=== PATIENT | male | born 1945 | race Caucasian/White ===

== ENCOUNTER → 2016-12-18 | Outpatient (CLI) | payer MEDICARE, OTHER ==
[~2016-12-18] MED LIST: AZOR5TAB4 PO; FISH100049 PO; ISOVUE-370 76% 100ML VIAL (Q9967) As Ordered ONE; SYNT150T PO; VITA20008 PO; asa PO; lipitor PO; metformin PO; multivitamin PO
--- NOTE | 2016-12-18 10:59 | REP ---
CT abdomen and pelvis multiphase scanning, a CT urogram protocol: Scanning is initially performed without IV contrast. After IV contrast, immediate and delayed scanning are performed. 3-D reconstruction of the urinary collecting system is performed. On 06/13/2015 there was focal panniculitis in the abdominal left lower quadrant. A followup study 10/10/2015 this panniculitis has resolved but there was a new focal zone of panniculitis in the right lower quadrant. On the study today there is a focal panniculitis in the right lower quadrant has resolved. The panniculitis in the left lower quadrant remains resolved. No new focal zones of panniculitis are identified. There are approximately four nonobstructive left renal calculi in the lower pole, the largest measuring 9 mm. There is no left hydronephrosis or hydroureter. There are no right renal or ureteral calculi. There is no right hydronephrosis. However, there are two bladder calculi posterolaterally on the right. These were not present on the most recent prior CT of 09/30/2015. These are nonspecific but could have been recently passed right ureteral calculi. Correlation with symptomatology is recommended. There is a 4.1 cm simple cyst at the lower pole of the right kidney. This measured 3.7 cm previously. There is a 3.2 cm simple cyst at the lower pole of the left kidney. This measured 2.7 cm previously. There are no renal masses. No perinephric stranding. The visualized lung oneal are unremarkable. The hepatic parenchyma is homogeneous and unremarkable. There are surgical clips in the gallbladder fossa. The pancreas and spleen are normal size and unremarkable. The adrenals and abdominal aorta are unremarkable. There is no bowel distension. The mesentery is unremarkable. Pelvis: The appendix has a normal appearance. The prostate is enlarged and effaces the bladder base. This is unchanged. There is no adenopathy or ascites. There is diverticulosis of the sigmoid colon without diverticulitis. This is unchanged. Impression: On the previous studies there were findings compatible with panniculitis. This has completely resolved on the current study. There is no hydronephrosis or hydroureter on the right on the left. There are several nonobstructive left renal calculi. There are no right renal calculi. There are two bladder calculi posterolaterally on the right, nonspecific but could have been recently passed into the bladder from a ureter. Correlate with the patient's symptomatology. There is a simple cyst in each kidney at the lower poles. The prostate is enlarged and effaces the bladder base. This is unchanged. There is no ascites or adenopathy. There is diverticulosis without diverticulitis. Signed by Vikas Laguerre MD 12/18/2016 10:50 A
== END ==
LOC: M RAD 08:44
PROVIDERS: ATTEND Internal Medicine
DX: N20.0 Calculus of kidney (principal)
CPT/HCPCS: 74178; Q9967

== ENCOUNTER → 2017-10-28 | Outpatient (REF) | payer MEDICARE, OTHER ==
[2017-10-28 10:26] LABS: CK-MB VALUE MASS 4.2 NG/ML (<3.6); CPK CREATINE PHOSPHOKINASE 268 U/L (39-308); MB/CK RELATIVE INDEX 1.56 (< OR =4); TROPONIN I < 0.02 NG/ML (< 0.10)
== END ==
LOC: M LAB REF 10:08
DX: R07.9 Chest pain, unspecified (principal)
CPT/HCPCS: 82550

== ENCOUNTER 2018-04-27 10:38 | Emergency (ER) | payer MEDICARE, OTHER ==
[2018-04-27] MEDS: NS 1,000 ML IV (11:10)
[2018-04-27] MEDS: KETOROLAC 30 MG/ML VIAL (J1885) IV (11:10)
[2018-04-27] MEDS: MORPHINE 4 MG/ML 1ML VIAL/SYRINGE (J2270) IV (11:11)
[2018-04-27 11:21] LABS: BASO % 0.2 % (0.0-1.0); EOS % 0.1 % (0.0-3.0); HEMATOCRIT 45.7 % (42.0-52.0); HEMOGLOBIN 15.9 g/dl (13.5-17.5); IMMATURE GRANULOCYTE % 0.5 % (0-3.0); MEAN CORPUSCULAR HEMOGLOBIN 30.8 pg (27.0-33.0); MEAN CORPUSCULAR HGB CONC 34.8 g/dl (32.0-36.5); MEAN CORPUSCULAR VOLUME 88.4 fl (80.0-96.0); MONO % 8.7 % (0.0-5.0); NEUTROPHILS # 9.1 10^3/uL (1.8-7.7); NEUTROPHILS % 81.5 % (36.0-66.0); PLATELET COUNT, AUTOMATED 160 10^3/uL (150-450); RED BLOOD COUNT 5.17 10^6/uL (4.30-6.10); RED CELL DISTRIBUTION WIDTH 12.5 % (11.5-14.5); WHITE BLOOD COUNT 11.1 10^3/uL (4.0-10.0)
[2018-04-27 11:51] LABS: ANION GAP 10 MEQ/L (8-16); BLOOD UREA NITROGEN 29 MG/DL (7-18); C REACTIVE PROTEIN QUANTITATIV 4.03 MG/DL (0.00-0.30); CALCIUM LEVEL 9.5 MG/DL (8.8-10.2); CARBON DIOXIDE LEVEL 26 MEQ/L (21-32); CHLORIDE LEVEL 100 MEQ/L (98-107); CREATININE FOR GFR 2.18 MG/DL (0.70-1.30); GLUCOSE, FASTING 189 MG/DL (70-100); LIPASE 102 U/L (73-393); POTASSIUM SERUM 4.2 MEQ/L (3.5-5.1); SODIUM LEVEL 136 MEQ/L (136-145)
[2018-04-27 12:12] LABS: APPEARANCE, URINE CLEAR (CLEAR); BACTERIA, URINE AUTO NEGATIVE (NEGATIVE); BILIRUBIN, URINE AUTO NEGATIVE (NEGATIVE); BLOOD, URINE BLOOD 1+ (NEGATIVE); COLOR, URINE YELLOW (YELLOW); GLUCOSE, URINE (UA) AUTO 2+ mg/dL (NEGATIVE); KETONE, URINE AUTO TRACE mg/dL (NEGATIVE); LEUKOCYTE ESTERASE, URINE AUTO NEGATIVE (NEGATIVE); MUCUS, URINE SMALL (NEGATIVE); NITRITE, URINE AUTO NEGATIVE (NEGATIVE); PROTEIN, URINE AUTO NEGATIVE (NEGATIVE); RBC, URINE AUTO 2 /HPF (0-3); SPECIFIC GRAVITY URINE AUTO 1.015 (1.002-1.035); SQUAMOUS EPITHELIAL CELL UR AU 0 /HPF (0-6); UROBILINOGEN, URINE AUTO 0.2 mg/dL (0.0-2.0); WBC, URINE AUTO 2 /HPF (0-3)
[2018-04-27 13:15] LABS: ANION GAP 8 MEQ/L (8-16); BLOOD UREA NITROGEN 29 MG/DL (7-18); CALCIUM LEVEL 8.3 MG/DL (8.8-10.2); CARBON DIOXIDE LEVEL 25 MEQ/L (21-32); CHLORIDE LEVEL 105 MEQ/L (98-107); CREATININE FOR GFR 1.97 MG/DL (0.70-1.30); GLUCOSE, FASTING 177 MG/DL (70-100); POTASSIUM SERUM 4.7 MEQ/L (3.5-5.1); SODIUM LEVEL 138 MEQ/L (136-145)
== END 2018-04-27 13:46 | disposition home or self-care (01) ==
LOC: M ED 10:38
DX: N20.1 Calculus of ureter (principal); N13.30 Unspecified hydronephrosis; N28.1 Cyst of kidney, acquired; I25.2 Old myocardial infarction; E11.9 Type 2 diabetes mellitus without complications; Z98.890 Other specified postprocedural states; Z87.442 Personal history of urinary calculi; Z79.890 Hormone replacement therapy; Z79.84 Long term (current) use of oral hypoglycemic drugs; Z79.899 Other long term (current) drug therapy
CPT/HCPCS: J2270

== ENCOUNTER → 2018-05-05 | Outpatient (REF) | payer MEDICARE, OTHER ==
[2018-05-05 14:31] LABS: APPEARANCE, URINE TURBID (CLEAR); BACTERIA, URINE AUTO NEGATIVE (NEGATIVE); BILIRUBIN, URINE AUTO NEGATIVE (NEGATIVE); BLOOD, URINE BLOOD NEGATIVE (NEGATIVE); COLOR, URINE YELLOW (YELLOW); GLUCOSE, URINE (UA) AUTO 1+ mg/dL (NEGATIVE); KETONE, URINE AUTO NEGATIVE (NEGATIVE); LEUKOCYTE ESTERASE, URINE AUTO NEGATIVE (NEGATIVE); MUCUS, URINE SMALL (NEGATIVE); NITRITE, URINE AUTO NEGATIVE (NEGATIVE); PROTEIN, URINE AUTO NEGATIVE (NEGATIVE); RBC, URINE AUTO 2 /HPF (0-3); SQUAMOUS EPITHELIAL CELL UR AU 0 /HPF (0-6); UROBILINOGEN, URINE AUTO 0.2 mg/dL (0.0-2.0); WBC, URINE AUTO 2 /HPF (0-3)
== END ==
LOC: M SMT 13:40
DX: N20.0 Calculus of kidney (principal)
CPT/HCPCS: 81001

== ENCOUNTER → 2018-05-05 | Outpatient (CLI) | payer MEDICARE, OTHER | LOC: M SMT 08:21 | DX: N20.0 Calculus of kidney (principal) | CPT/HCPCS: 74018; 81001 ==

== ENCOUNTER → 2018-05-18 | Outpatient (CLI) | payer MEDICARE, OTHER | LOC: M RAD 07:52 | DX: N28.1 Cyst of kidney, acquired (principal); N40.0 Benign prostatic hyperplasia without lower urinary tract symptoms | CPT/HCPCS: 76775 ==

== ENCOUNTER → 2018-06-08 | Outpatient (CLI) | payer MEDICARE, OTHER ==
[2018-06-08 08:56] LABS: HEMOGLOBIN 15.6 g/dl (13.5-17.5); MEAN CORPUSCULAR HEMOGLOBIN 30.6 pg (27.0-33.0); MEAN CORPUSCULAR HGB CONC 33.9 g/dl (32.0-36.5); MEAN CORPUSCULAR VOLUME 90.2 fl (80.0-96.0); PLATELET COUNT, AUTOMATED 160 10^3/uL (150-450); RED CELL DISTRIBUTION WIDTH 12.4 % (11.5-14.5); WHITE BLOOD COUNT 5.3 10^3/uL (4.0-10.0)
[2018-06-08 09:23] LABS: ANION GAP 7 MEQ/L (8-16); BLOOD UREA NITROGEN 18 MG/DL (7-18); CALCIUM LEVEL 9.2 MG/DL (8.8-10.2); CARBON DIOXIDE LEVEL 27 MEQ/L (21-32); CHLORIDE LEVEL 105 MEQ/L (98-107); CREATININE FOR GFR 1.14 MG/DL (0.70-1.30); GLOMERULAR FILTRATION RATE > 60.0 (>42); GLUCOSE, FASTING 187 MG/DL (70-100); POTASSIUM SERUM 4.3 MEQ/L (3.5-5.1); SODIUM LEVEL 139 MEQ/L (136-145)
[2018-06-08 09:33] LABS: INR 0.98; PROTHROMBIN TIME 13.1 SECONDS (12.1-14.4)
[2018-06-08 09:34] LABS: PARTIAL THROMBOPLASTIN TIME 26.8 SECONDS (25.4-37.6)
== END ==
LOC: M LAB 08:21
DX: Z01.818 Encounter for other preprocedural examination (principal); N20.0 Calculus of kidney
CPT/HCPCS: 71046

== ENCOUNTER 2018-06-16 09:02 | Day surgery (SDC) | payer MEDICARE, OTHER ==
[~2018-06-16 09:02] MED LIST changes: -AZOR5TAB4 PO; -FISH100049 PO; -ISOVUE-370 76% 100ML VIAL (Q9967) As Ordered ONE; +LIDOCAINE 1% MDV 20ML VIAL SQ; -SYNT150T PO; -VITA20008 PO; -asa PO; -lipitor PO; -metformin PO; -multivitamin PO
[2018-06-16] MEDS: LR 1,000 ML IV (10:00)
[2018-06-16 10:22] LABS: BEDSIDE GLUCOSE 173 MG/DL (83-110)
[2018-06-16] MEDS ORDERED: PROPOFOL 200 MG/20 ML VIAL As Ordered (11:25)
[2018-06-16] MEDS ORDERED: MIDAZOLAM INJ 2 MG/2 ML VIAL (J2250) As Ordered (11:25)
[2018-06-16] MEDS ORDERED: LIDOCAINE 2% INJ 100 MG/5 ML SDV (FOR ANES.) As Ordered (11:25)
[2018-06-16] MEDS ORDERED: fentaNYL 100 MCG/2 ML INJECTION (J3010) As Ordered (11:32)
[2018-06-16] MEDS ORDERED: ONDANSETRON 4MG/2ML VIAL (J2405) As Ordered (12:21)
== END 2018-06-16 14:55 | disposition home or self-care (01) ==
LOC: M SDC 09:02
DX: N20.0 Calculus of kidney (principal); I25.2 Old myocardial infarction; I10 Essential (primary) hypertension; E11.9 Type 2 diabetes mellitus without complications; E03.9 Hypothyroidism, unspecified; E78.00 Pure hypercholesterolemia, unspecified; N40.0 Benign prostatic hyperplasia without lower urinary tract symptoms; N13.30 Unspecified hydronephrosis; E29.1 Testicular hypofunction; Z79.899 Other long term (current) drug therapy; Z79.82 Long term (current) use of aspirin; Z79.84 Long term (current) use of oral hypoglycemic drugs; Z86.19 Personal history of other infectious and parasitic diseases
CPT/HCPCS: 50590

== ENCOUNTER → 2018-07-14 | Outpatient (CLI) | payer MEDICARE, OTHER ==
[~2018-07-14] MED LIST changes: +AMLO-310 PO; +ASPI1TAB PO; +AZOR5TAB4 PO; +FISH100049 PO; +FLOM0.4C39 PO; -LIDOCAINE 1% MDV 20ML VIAL SQ; +LIPI20TA PO; +METF750T PO; +NORCOTAB PO; +SYNT125T PO; +SYNT150T PO; +VITA20008 PO; +ZOFR4TAB14 PO; +asa PO; +lipitor PO; +metformin PO; +multivitamin PO
[2018-07-14 10:54] LABS: IONIZED CALCIUM 4.7 MG/DL (4.5-5.3)
[2018-07-14 11:24] LABS: BLOOD UREA NITROGEN 19 MG/DL (7-18); CALCIUM LEVEL 8.7 MG/DL (8.8-10.2); CARBON DIOXIDE LEVEL 27 MEQ/L (21-32); CHLORIDE LEVEL 105 MEQ/L (98-107); CREATININE FOR GFR 1.04 MG/DL (0.70-1.30); GLOMERULAR FILTRATION RATE > 60.0 (>42); GLUCOSE, FASTING 162 MG/DL (70-100); MAGNESIUM LEVEL 1.8 MG/DL (1.8-2.4); PHOSPHORUS LEVEL 2.3 MG/DL (2.5-4.9); POTASSIUM SERUM 4.6 MEQ/L (3.5-5.1); SODIUM LEVEL 139 MEQ/L (136-145); URIC ACID 3.9 MG/DL (3.5-7.2)
--- NOTE | 2018-07-14 11:30 | REP ---
KUB, ONE VIEW: HISTORY: Kidney stones. COMPARISON: 06/16/2018. Air is present in small and large intestine. There are no air fluid levels or dilated loops of intestine. There is no pneumoperitoneum. Calcifications are present overlying the kidneys consistent with nephrolithiasis. Surgical clips are present in the right upper quadrant. IMPRESSION: 1. Nonspecific bowel gas pattern. 2. Bilateral nephrolithiasis. Electronically Signed by Pablito Rodriguez MD 07/14/2018 11:36 A
[2018-07-14 11:35] LABS: PTH INTACT 72.9 PG/ML (18.5-88.0)
== END ==
LOC: M LAB 10:23
PROVIDERS: ATTEND Nurse Practitioner Family
DX: N20.0 Calculus of kidney (principal)

== ENCOUNTER 2018-08-01 12:21 | Emergency (ER) | payer MEDICARE, OTHER ==
[~2018-08-01] VITALS: Ht 172.7 cm; Wt 84.1 kg
[2018-08-01 12:47] LABS: BASO % 0.1 % (0.0-1.0); HEMATOCRIT 44.4 % (42.0-52.0); HEMOGLOBIN 15.4 g/dl (13.5-17.5); LYMPH # 0.5 10^3/uL (1.5-4.5); LYMPH % 4.2 % (24.0-44.0); MEAN CORPUSCULAR HEMOGLOBIN 30.8 pg (27.0-33.0); MEAN CORPUSCULAR HGB CONC 34.7 g/dl (32.0-36.5); MEAN CORPUSCULAR VOLUME 88.8 fl (80.0-96.0); MONO # 0.3 10^3/uL (0.0-0.8); MONO % 2.4 % (0.0-5.0); NEUTROPHILS # 10.3 10^3/uL (1.8-7.7); PLATELET COUNT, AUTOMATED 182 10^3/uL (150-450); WHITE BLOOD COUNT 11.1 10^3/uL (4.0-10.0)
[2018-08-01 13:05] VITALS: BP 150/77
[2018-08-01 13:17] LABS: ALBUMIN 4.3 GM/DL (3.2-5.2); BILIRUBIN,DIRECT 0.2 MG/DL (0.0-0.2); BILIRUBIN,TOTAL 0.8 MG/DL (0.2-1.0); CALCIUM LEVEL 9.4 MG/DL (8.8-10.2); CREATININE FOR GFR 1.37 MG/DL (0.70-1.30); GLOMERULAR FILTRATION RATE 54.7 (>42); POTASSIUM SERUM 4.5 MEQ/L (3.5-5.1); TOTAL PROTEIN 7.2 GM/DL (6.4-8.2)
--- NOTE | 2018-08-01 13:33 | REP ---
CT abdomen and pelvis without IV or oral contrast: History: Flank pain. Rule out stone. Comparison study: April 27, 2018. 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 The lung bases are clear on axial CT images. The liver and spleen are normal in size and homogeneous in texture. No adrenal lesion is seen. No pancreatic abnormalities observed. There is a lower pole cyst in the right kidney measuring 4.2 cm in greatest diameter. There is a cyst in the lower pole left kidney measuring 3.1 cm in diameter. There are intrarenal calculi bilaterally. There is moderate right-sided hydronephrosis due to the presence of a right mid ureteral calculus. This measures 5.3 mm in greatest diameter. It is seen at the level of the L4 vertebral body. No left ureteral calculus is observed. No left-sided hydronephrosis is seen. There is a 4 mm infrarenal calculus in the right mid kidney and a 3 mm calculus in the lower pole on the right. There are several adjacent 4-5 mm calculi in the lower pole of the left kidney. No retroperitoneal mass or adenopathy is observed. There is an area to the left of midline in the small bowel mesentery consistent with some mesenteric fibrosis. There is unchanged from most recent study of April 27, 2018. It is less prominent than a complex density seen at this location on the June 2015 prior exam. There is left colonic diverticulosis without CT evidence of diverticulitis. Prostate is enlarged. Normal appendix is seen. Impression: Moderate right-sided hydronephrosis due to a 5.3 mm right mid ureteral calculus. Bilateral infrarenal nephrolithiasis again noted. No left-sided hydronephrosis. Left colonic diverticulosis. Bilateral renal cysts. 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 Post cholecystectomy clips. Electronically Signed by Phi Plata MD 08/01/2018 01:56 P
[2018-08-01] MEDS ORDERED: ONDANSETRON 4MG/2ML VIAL (J2405) IV ONE (14:15)
[2018-08-01] MEDS ORDERED: MORPHINE 4 MG/ML 1ML VIAL/SYRINGE (J2270) IV ONE ×2 (14:15→15:30)
[2018-08-01] MEDS ORDERED: PERCOCET 5MG/325MG TAB PO ONE (15:30)
[2018-08-01] MEDS ORDERED: PERC5TAB12 PO (16:23)
[2018-08-01] MEDS ORDERED: ZOFR4TAB16 PO (16:23)
== END 2018-08-01 16:39 | disposition home or self-care (01) ==
LOC: M ED 12:21
DX: N20.1 Calculus of ureter (principal); E86.0 Dehydration; R11.2 Nausea with vomiting, unspecified; Z87.442 Personal history of urinary calculi; Z79.899 Other long term (current) drug therapy; Z79.82 Long term (current) use of aspirin; Z79.84 Long term (current) use of oral hypoglycemic drugs
CPT/HCPCS: 74176; 80048; 80076; 81001; 83690; 85025; 96374; 96375; 96376; 99284; J2270; J2405

== ENCOUNTER → 2018-09-05 | Outpatient (CLI) | payer MEDICARE, OTHER ==
[~2018-09-05] MED LIST changes: +PERC5TAB12 PO; +ZOFR4TAB16 PO
--- NOTE | 2018-09-05 10:12 | REP ---
KUB, ONE VIEW: HISTORY: Kidney stones. COMPARISON: 07/14/2018 Air is present in small and large intestine. There are no air fluid levels or dilated loops of intestine. There is no pneumoperitoneum. Calcifications are present overlying the kidneys consistent with nephrolithiasis. IMPRESSION: 1. Nonspecific bowel gas pattern. 2. Bilateral nephrolithiasis. Electronically Signed by Pablito Rodriguez MD 09/05/2018 10:17 A
[2018-09-05 13:34] LABS: AMORPHOUS SEDIMENT SMALL (NEGATIVE); APPEARANCE, URINE TURBID (CLEAR); BACTERIA, URINE AUTO NEGATIVE (NEGATIVE); BILIRUBIN, URINE AUTO NEGATIVE (NEGATIVE); BLOOD, URINE BLOOD NEGATIVE (NEGATIVE); CALCIUM OXALATE CRYSTALS SMALL; COLOR, URINE YELLOW (YELLOW); GLUCOSE, URINE (UA) AUTO 1+ mg/dL (NEGATIVE); KETONE, URINE AUTO NEGATIVE (NEGATIVE); LEUKOCYTE ESTERASE, URINE AUTO NEGATIVE (NEGATIVE); NITRITE, URINE AUTO NEGATIVE (NEGATIVE); PROTEIN, URINE AUTO NEGATIVE (NEGATIVE); RBC, URINE AUTO 0 /HPF (0-3); SPECIFIC GRAVITY URINE AUTO 1.021 (1.002-1.035); SQUAMOUS EPITHELIAL CELL UR AU 0 /HPF (0-6); UROBILINOGEN, URINE AUTO 0.2 mg/dL (0.0-2.0); WBC, URINE AUTO 0 /HPF (0-3)
== END ==
LOC: M SMT 08:39
PROVIDERS: ATTEND Nurse Practitioner Family
DX: N20.0 Calculus of kidney (principal)
CPT/HCPCS: 74018; 81001; 87086; G0463

== ENCOUNTER → 2019-03-06 | Outpatient (CLI) | payer MEDICARE, OTHER ==
[~2019-03-06] MED LIST changes: -ASPI1TAB PO; +ASPI81TA26 PO; +HYDR-3715 PO; -METF750T PO; +METF750T36 PO; -NORCOTAB PO
--- NOTE | 2019-03-06 17:28 | REP ---
KUB: Single view. History: Kidney stones. Comparison study: September 05, 2018. Findings: There are clips in right upper quadrant. Air and stool is seen in a nondilated colon. Splenic stripes are intact. There are calcific opacities overlying the lower pole of the left kidney and the upper pole of the right kidney. These are similar to the prior study of September 05, 2018 and consistent with intrarenal calculi. Some vascular calcification is observed. There are degenerative changes in the lumbar spine. Impression: Findings consistent with bilateral intrarenal nephrolithiasis. Electronically Signed by Phi Plata MD 03/06/2019 06:02 P
== END ==
LOC: M SMT 14:17
PROVIDERS: ATTEND Nurse Practitioner Family
DX: N20.0 Calculus of kidney (principal)

== ENCOUNTER → 2019-09-05 | Outpatient (CLI) | payer MEDICARE, OTHER ==
[~2019-09-05] MED LIST changes: -AMLO-310 PO; +AMLO-360 PO
--- NOTE | 2019-09-05 14:26 | REPPI ---
REASON: History of renal calculi. COMPARISON: 03/06/2019. There are multiple calcific densities superimposed over each nephric silhouette region and probably unchanged from the prior exam, however, the nephric silhouettes were for the most part obscured by bowel content on the prior exam. There are pelvic calcifications status quo. There are chronic changes seen involving the spine, hips, and sacroiliac joints status quo. IMPRESSION: Probably no significant change when compared to the prior exam. Electronically Signed by Stevan Guido DO 09/05/2019 02:46 P
== END ==
LOC: M PLAIMG 13:15
PROVIDERS: ATTEND Nurse Practitioner Family
DX: N20.0 Calculus of kidney (principal)

== ENCOUNTER → 2019-10-05 | Outpatient (REF) | payer MEDICARE, OTHER ==
[2019-10-05 17:13] LABS: APPEARANCE, URINE CLEAR (CLEAR); BACTERIA, URINE AUTO NEGATIVE (NEGATIVE); BILIRUBIN, URINE AUTO NEGATIVE (NEGATIVE); BLOOD, URINE BLOOD NEGATIVE (NEGATIVE); COLOR, URINE YELLOW (YELLOW); GLUCOSE, URINE (UA) AUTO 3+ mg/dL (NEGATIVE); KETONE, URINE AUTO NEGATIVE (NEGATIVE); LEUKOCYTE ESTERASE, URINE AUTO NEGATIVE (NEGATIVE); NITRITE, URINE AUTO NEGATIVE (NEGATIVE); PROTEIN, URINE AUTO NEGATIVE (NEGATIVE); RBC, URINE AUTO 0 /HPF (0-3); SQUAMOUS EPITHELIAL CELL UR AU 0 /HPF (0-6); UROBILINOGEN, URINE AUTO 0.2 mg/dL (0.0-2.0); WBC, URINE AUTO 0 /HPF (0-3)
[2019-10-05 17:16] LABS: BLOOD UREA NITROGEN 24 MG/DL (7-18); CALCIUM LEVEL 9.3 MG/DL (8.8-10.2); CARBON DIOXIDE LEVEL 28 MEQ/L (21-32); CHLORIDE LEVEL 103 MEQ/L (98-107); CREATININE FOR GFR 1.17 MG/DL (0.70-1.30); GLOMERULAR FILTRATION RATE > 60.0 (>42); GLUCOSE, FASTING 233 MG/DL (70-100); POTASSIUM SERUM 4.4 MEQ/L (3.5-5.1); SODIUM LEVEL 139 MEQ/L (136-145)
== END ==
LOC: M PLALAB 13:26
PROVIDERS: ATTEND Nurse Practitioner Family
DX: N20.0 Calculus of kidney (principal)

== ENCOUNTER → 2019-12-21 | Outpatient (REF) | payer MEDICARE, OTHER ==
[2019-12-23 18:07] LABS: Lyme Disease IgG/IgM Antibodie <0.91 ISR (0.00-0.90); Lyme Disease IgM Ab Quantitati <0.80 index (0.00-0.79)
== END ==
LOC: M LAB REF 16:25
PROVIDERS: ATTEND Internal Medicine
DX: M25.50 Pain in unspecified joint (principal)

== ENCOUNTER → 2020-12-06 | Outpatient (CLI) | payer MEDICARE, OTHER ==
[~2020-12-06] MED LIST changes: +FISH1000 PO; +JARD1TAB PO
== END ==
LOC: M LABSMTC 11:47
PROVIDERS: ATTEND Anesthesiology
DX: Z20.828 Contact with and (suspected) exposure to other viral communicable diseases (principal); Z11.59 Encounter for screening for other viral diseases

== ENCOUNTER → 2021-06-02 | Outpatient (REF) | LOC: M LABSMTC 09:44 | PROVIDERS: ATTEND Pediatrics | DX: Z11.52 Encounter for screening for COVID-19 (principal) ==

== ENCOUNTER → 2022-07-07 | Outpatient (CLI) | payer MEDICARE, OTHER ==
[~2022-07-07] MED LIST changes: -AZOR5TAB4 PO; +[UNRECOGNIZED DRUG - CODE] PO
== END ==
LOC: M PLAIMG 09:39
PROVIDERS: ATTEND Physician Assistant
DX: N20.0 Calculus of kidney (principal)

== ENCOUNTER → 2022-07-28 | Outpatient (CLI) | payer MEDICARE, OTHER ==
[~2022-07-28] MED LIST changes: +LEVO112T2 PO; +OMEG10002 PO
[2022-07-28 10:04] LABS: APPEARANCE, URINE MANUAL CLEAR (CLEAR); BILIRUBIN, URINE MANUAL NEGATIVE (NEGATIVE); BLOOD URINE MANUAL NEGATIVE (NEGATIVE); COLOR, URINE MANUAL YELLOW (YELLOW); GLUCOSE, URINE (UA) MANUAL 4+(1000 MG/DL) mg/dL (NEGATIVE); KETONE, URINE MANUAL NEGATIVE (NEGATIVE); LEUKOCYTE ESTERASE, URINE MAN NEGATIVE (NEGATIVE); NITRITE, URINE MANUAL NEGATIVE (NEGATIVE); PROTEIN, URINE MANUAL NEGATIVE (NEGATIVE); UROBILINOGEN, URINE MANUAL NORMAL (NORMAL)
[2022-07-28 10:09] LABS: BASO % 0.6 % (0.0-1.0); EOS # 0.2 10^3/uL (0.0-0.5); EOS % 3.9 % (0.0-3.0); HEMOGLOBIN 16.7 g/dl (13.5-17.5); LYMPH # 1.2 10^3/uL (1.5-5.0); LYMPH % 19.5 % (24.0-44.0); MEAN CORPUSCULAR HEMOGLOBIN 30.1 pg (27.0-33.0); MEAN CORPUSCULAR HGB CONC 32.1 g/dl (32.0-36.5); MEAN CORPUSCULAR VOLUME 93.7 fl (80.0-96.0); MONO # 0.5 10^3/uL (0.0-0.8); MONO % 7.4 % (2.0-8.0); NEUTROPHILS # 4.2 10^3/uL (1.5-8.5); NEUTROPHILS % 68.3 % (36.0-66.0); PLATELET COUNT, AUTOMATED 159 10^3/uL (150-450); RED BLOOD COUNT 5.55 10^6/uL (4.30-6.10); WHITE BLOOD COUNT 6.2 10^3/uL (4.0-10.0)
== END ==
LOC: M WUC 08:34
PROVIDERS: ATTEND Physician Assistant
DX: Z01.818 Encounter for other preprocedural examination (principal); N20.0 Calculus of kidney

== ENCOUNTER → 2022-08-02 | Outpatient (CLI) | payer MEDICARE, OTHER | LOC: M LABSMTC 09:50 | PROVIDERS: ATTEND Anesthesiology | DX: Z20.828 Contact with and (suspected) exposure to other viral communicable diseases (principal); Z11.52 Encounter for screening for COVID-19 ==

== ENCOUNTER 2022-08-06 06:58 | Day surgery (SDC) | payer MEDICARE, OTHER ==
[~2022-08-06] VITALS: Ht 172.7 cm; Wt 79.8 kg
[~2022-08-06 06:58] MED LIST changes: +ceFAZolin SOD 2 GM in IV 1 EA IV ONE
[2022-08-06] MEDS ORDERED: LIDOCAINE 2% 100MG/5ML SDV (FOR ANES.) As Ordered ONE (08:00)
[2022-08-06] MEDS ORDERED: propofoL 500 MG/50 ML VIAL As Ordered ONE (08:00)
[2022-08-06] MEDS ORDERED: fentaNYL 100 MCG/2 ML INJECTION As Ordered ONE (08:01)
[2022-08-06] MEDS ORDERED: MIDAZOLAM INJ 2MG/2ML VIAL As Ordered ONE (08:01)
[2022-08-06] MEDS ORDERED: KETOROLAC 60MG 2ML VIAL As Ordered ONE (09:03)
[2022-08-06] MEDS ORDERED: ONDANSETRON 4MG 2ML VIAL As Ordered ONE (09:03)
[2022-08-06] MEDS ORDERED: ePHEDrine SULFATE 25 MG/5 ML(5MG/ML) SYRINGE As Ordered ONE (09:06)
[2022-08-06 09:39] VITALS: BP 139/69
== END 2022-08-06 09:54 | disposition home or self-care (01) ==
LOC: M SDC 06:58
PROVIDERS: ATTEND Urology
DX: N20.0 Calculus of kidney (principal); I10 Essential (primary) hypertension; I25.2 Old myocardial infarction; E78.5 Hyperlipidemia, unspecified; E11.9 Type 2 diabetes mellitus without complications; E04.1 Nontoxic single thyroid nodule; N40.0 Benign prostatic hyperplasia without lower urinary tract symptoms; Z79.84 Long term (current) use of oral hypoglycemic drugs; Z79.899 Other long term (current) drug therapy
CPT/HCPCS: 50590; 74018; J0690; J1885; J2250; J2405; J3010

== ENCOUNTER → 2022-09-17 | Outpatient (CLI) | payer MEDICARE, OTHER ==
[~2022-09-17] MED LIST changes: -ceFAZolin SOD 2 GM in IV 1 EA IV ONE
== END ==
LOC: M WUC 09:36
PROVIDERS: ATTEND Urology
DX: N20.0 Calculus of kidney (principal)

== ENCOUNTER → 2022-09-21 | Outpatient (REF) | payer MEDICARE, OTHER | LOC: M SMT 12:58 | PROVIDERS: ATTEND Physician Assistant | DX: N20.0 Calculus of kidney (principal) ==

== ENCOUNTER → 2023-05-17 | Outpatient (REF) | payer MEDICARE, OTHER | LOC: M LAB REF 19:12 | PROVIDERS: ATTEND Physician Assistant | DX: R30.0 Dysuria (principal) ==

== ENCOUNTER → 2023-05-28 | Outpatient (CLI) | payer MEDICARE, OTHER | LOC: M RAD 09:12 | PROVIDERS: ATTEND Physician Assistant | DX: N20.0 Calculus of kidney (principal) ==

== ENCOUNTER → 2023-11-29 | Outpatient (REF) | payer MEDICARE, OTHER | LOC: M LAB REF 09:57 | PROVIDERS: ATTEND Student in an Organized Health Care Education/Training Program | DX: R30.0 Dysuria (principal) ==

== ENCOUNTER → 2023-12-03 | Outpatient (CLI) | payer MEDICARE, OTHER | LOC: M RAD 08:56 | PROVIDERS: ATTEND Physician Assistant | DX: N20.0 Calculus of kidney (principal) ==

== ENCOUNTER → 2023-12-07 | Outpatient (REF) | payer MEDICARE, OTHER ==
[2023-12-07 11:17] LABS: APPEARANCE, URINE CLEAR (CLEAR); BACTERIA, URINE AUTO NEGATIVE (NEGATIVE); BILIRUBIN, URINE AUTO NEGATIVE (NEGATIVE); BLOOD, URINE BLOOD 1+ (NEGATIVE); COLOR, URINE YELLOW (YELLOW); GLUCOSE, URINE (UA) AUTO 3+ mg/dL (NEGATIVE); KETONE, URINE AUTO NEGATIVE (NEGATIVE); LEUKOCYTE ESTERASE, URINE AUTO NEGATIVE (NEGATIVE); MUCUS, URINE SMALL (NEGATIVE); NITRITE, URINE AUTO NEGATIVE (NEGATIVE); PROTEIN, URINE AUTO NEGATIVE (NEGATIVE); RBC, URINE AUTO 4 /HPF (0-3); SPECIFIC GRAVITY URINE AUTO 1.025 (1.002-1.035); SQUAMOUS EPITHELIAL CELL UR AU 0 /HPF (0-6); UROBILINOGEN, URINE AUTO 0.2 mg/dL (0.0-2.0); WBC, URINE AUTO 1 /HPF (0-3)
== END ==
LOC: M SMT 10:10
PROVIDERS: ATTEND Physician Assistant
DX: R39.9 Unspecified symptoms and signs involving the genitourinary system (principal)

== ENCOUNTER → 2023-12-15 | Outpatient (CLI) | payer MEDICARE, OTHER | LOC: M PLAIMG 08:40 | PROVIDERS: ATTEND Physician Assistant | DX: N20.0 Calculus of kidney (principal) ==

== ENCOUNTER → 2023-12-23 | Outpatient (CLI) | payer MEDICARE, OTHER ==
[2023-12-23 08:24] LABS: HEMATOCRIT 49.3 % (42.0-52.0); HEMOGLOBIN 16.6 g/dl (13.5-17.5); MEAN CORPUSCULAR HEMOGLOBIN 30.6 pg (27.0-33.0); MEAN CORPUSCULAR HGB CONC 33.7 g/dl (32.0-36.5); PLATELET COUNT, AUTOMATED 144 10^3/uL (150-450); RED BLOOD COUNT 5.42 10^6/uL (4.30-6.10); WHITE BLOOD COUNT 7.4 10^3/uL (4.0-10.0)
[2023-12-23 08:51] LABS: BLOOD UREA NITROGEN 25 MG/DL (9-23); CALCIUM LEVEL 9.8 MG/DL (8.3-10.6); CARBON DIOXIDE LEVEL 27 MMOL/L (20-31); CHLORIDE LEVEL 106 MMOL/L (98-107); CREATININE FOR GFR 1.17 MG/DL (0.70-1.30); GLOMERULAR FILTRATION RATE > 60.0 (>42); GLUCOSE, FASTING 160 MG/DL (74-106); POTASSIUM SERUM 4.4 MMOL/L (3.5-5.1); SODIUM LEVEL 141 MMOL/L (136-145)
== END ==
LOC: M RAD 07:42
PROVIDERS: ATTEND Physician Assistant
DX: Z01.818 Encounter for other preprocedural examination (principal)

== ENCOUNTER → 2023-12-28 | Outpatient (REF) | payer MEDICARE, OTHER ==
[2023-12-28 18:22] LABS: APPEARANCE, URINE CLEAR (CLEAR); BACTERIA, URINE AUTO NEGATIVE (NEGATIVE); BILIRUBIN, URINE AUTO NEGATIVE (NEGATIVE); BLOOD, URINE BLOOD NEGATIVE (NEGATIVE); COLOR, URINE YELLOW (YELLOW); GLUCOSE, URINE (UA) AUTO 3+ mg/dL (NEGATIVE); KETONE, URINE AUTO NEGATIVE (NEGATIVE); LEUKOCYTE ESTERASE, URINE AUTO NEGATIVE (NEGATIVE); MUCUS, URINE SMALL (NEGATIVE); NITRITE, URINE AUTO NEGATIVE (NEGATIVE); PROTEIN, URINE AUTO NEGATIVE (NEGATIVE); RBC, URINE AUTO 1 /HPF (0-3); SPECIFIC GRAVITY URINE AUTO 1.025 (1.002-1.035); SQUAMOUS EPITHELIAL CELL UR AU 0 /HPF (0-6); UROBILINOGEN, URINE AUTO 0.2 mg/dL (0.0-2.0); WBC, URINE AUTO 1 /HPF (0-3)
[2023-12-28 18:30] LABS: CREATININE, URINE 49.6 MG/DL
== END ==
LOC: M LAB REF 16:09
PROVIDERS: ATTEND Internal Medicine
DX: Z01.818 Encounter for other preprocedural examination (principal)

== ENCOUNTER 2024-01-07 08:17 | Day surgery (SDC) | payer MEDICARE, OTHER ==
[~2024-01-07] VITALS: Ht 172.7 cm; Wt 80.3 kg
[2024-01-07] MEDS: ceFAZolin SOD 2 GM in IV 1 EA IV ONE (09:57)
[2024-01-07] MEDS ORDERED: ONDANSETRON 4MG 2ML VIAL As Ordered ONE (09:58)
[2024-01-07] MEDS ORDERED: ROCURONIUM BROMIDE 50MG/5ML VIAL As Ordered ONE (09:58)
[2024-01-07] MEDS ORDERED: ACETAMINOPHEN 1000MG 100ML IV BAG As Ordered ONE (09:58)
[2024-01-07] MEDS ORDERED: fentaNYL 100 MCG/2 ML INJECTION As Ordered ONE (09:58)
[2024-01-07] MEDS ORDERED: MIDAZOLAM INJ 2MG/2ML VIAL As Ordered ONE (09:58)
[2024-01-07] MEDS ORDERED: dexmedeTOMIDine (4MCG/ML)200MCG/50ML BTL (PRECEDEX) As Ordered ONE (09:58)
[2024-01-07] MEDS ORDERED: METOCLOPRAMIDE INJ 10MG/2ML VIAL As Ordered ONE (09:58)
[2024-01-07] MEDS ORDERED: propofoL 200 MG/20 ML VIAL As Ordered ONE (09:58)
[2024-01-07] MEDS ORDERED: SUGAMMADEX SODIUM 500 MG/5 ML VIAL (BRIDION) As Ordered ONE (09:58)
[2024-01-07] MEDS ORDERED: LIDOCAINE 2% 100MG/5ML SDV (FOR ANES.) As Ordered ONE (09:58)
[2024-01-07] MEDS ORDERED: diphenhydrAMINE 50MG/ML VIAL As Ordered ONE (10:09)
[2024-01-07] MEDS: ISOVUE-300 61% 100ML VIAL As Ordered ONE (10:27)
[2024-01-07] MEDS ORDERED: PHENYLephrine 500MCG 5ML (100MCG/ML) SYRINGE As Ordered ONE (10:30)
[2024-01-07] MEDS ORDERED: fentaNYL 100 MCG/2 ML INJECTION IV PRN (12:35)
[2024-01-07] MEDS ORDERED: LR 1,000 ML IV SCH (12:35)
[2024-01-07] MEDS: PERCOCET 5MG/325MG TAB PO PRN (14:08)
[2024-01-07] MEDS: ONDANSETRON 4MG 2ML VIAL IV PRN (14:08)
[2024-01-07] MEDS ORDERED: OXYB5TAB14 PO (14:56)
[2024-01-07] MEDS: oxyBUTYnin 5 MG TAB PO PRN (15:14)
[2024-01-07 15:40] VITALS: BP 126/80; TEMP 97.1; O2SAT 97
== END 2024-01-07 15:50 | disposition home or self-care (01) ==
LOC: M SDC 08:17
PROVIDERS: ATTEND Urology
DX: N13.2 Hydronephrosis with renal and ureteral calculous obstruction (principal); N21.0 Calculus in bladder; N40.1 Benign prostatic hyperplasia with lower urinary tract symptoms; E11.40 Type 2 diabetes mellitus with diabetic neuropathy, unspecified; I10 Essential (primary) hypertension; I25.2 Old myocardial infarction; E89.0 Postprocedural hypothyroidism; E78.00 Pure hypercholesterolemia, unspecified; Z79.899 Other long term (current) drug therapy; Z79.890 Hormone replacement therapy; Z79.84 Long term (current) use of oral hypoglycemic drugs; Z79.82 Long term (current) use of aspirin; Z79.85 Long-term (current) use of injectable non-insulin antidiabetic drugs; Z87.891 Personal history of nicotine dependence; Z90.49 Acquired absence of other specified parts of digestive tract; I45.2 Bifascicular block
CPT/HCPCS: 36415; 52317; 52356; 76000; 82365; 99284; C1769; C1894; C2617; J0131; J0690; J1100; J1200; J2250; J2371; J2405; J2765; J3010; Q9967

== ENCOUNTER 2024-01-07 23:43 | Emergency (ER) | payer MEDICARE, OTHER ==
[~2024-01-07 23:43] MED LIST changes: +OXYB5TAB14 PO
[2024-01-08 00:09] VITALS: BP 134/80; TEMP 97.4; O2SAT 97
[2024-01-08 02:32] LABS: HEMATOCRIT 46.1 % (42.0-52.0); HEMOGLOBIN 15.8 g/dl (13.5-17.5); MEAN CORPUSCULAR HGB CONC 34.3 g/dl (32.0-36.5); MEAN CORPUSCULAR VOLUME 90.4 fl (80.0-96.0); PLATELET COUNT, AUTOMATED 144 10^3/uL (150-450); WHITE BLOOD COUNT 14.7 10^3/uL (4.0-10.0)
== END 2024-01-08 02:33 | disposition home or self-care (01) ==
LOC: M ED 23:43
DX: R33.9 Retention of urine, unspecified (principal); R31.9 Hematuria, unspecified; N40.1 Benign prostatic hyperplasia with lower urinary tract symptoms; E11.9 Type 2 diabetes mellitus without complications; E78.5 Hyperlipidemia, unspecified; E03.9 Hypothyroidism, unspecified; Z79.84 Long term (current) use of oral hypoglycemic drugs; Z79.82 Long term (current) use of aspirin; Z79.02 Long term (current) use of antithrombotics/antiplatelets; Z79.4 Long term (current) use of insulin; Z79.899 Other long term (current) drug therapy

== ENCOUNTER 2024-01-14 19:54 | Inpatient (IN) | payer MEDICARE, OTHER ==
[~2024-01-14] VITALS: Ht 172.7 cm; Wt 89.4 kg
[2024-01-14] MEDS: NS 2,370 ML in IV 1 EA IV ONE (20:32)
[2024-01-14 20:50] LABS: HEMOGLOBIN 15.8 g/dl (13.5-17.5); MEAN CORPUSCULAR HGB CONC 34.3 g/dl (32.0-36.5); MEAN CORPUSCULAR VOLUME 90.4 fl (80.0-96.0); PLATELET COUNT, AUTOMATED 150 10^3/uL (150-450); RED BLOOD COUNT 5.09 10^6/uL (4.30-6.10); WHITE BLOOD COUNT 15.6 10^3/uL (4.0-10.0)
[2024-01-14 21:07] LABS: CK-MB VALUE MASS < 1.0 NG/ML (<3.6)
[2024-01-14 21:09] LABS: CPK CREATINE PHOSPHOKINASE 90 U/L (46-171); MB/CK RELATIVE INDEX 1.11 (< OR =4)
[2024-01-14 21:10] LABS: ALBUMIN 3.5 G/DL (3.2-5.2); ALKALINE PHOSPHATASE 76 U/L (46-116); ALT/SGPT 41 U/L (7.0-40); AST/SGOT 48 U/L (<34); BILIRUBIN,DIRECT 0.6 MG/DL (<0.4); BILIRUBIN,TOTAL 1.6 MG/DL (0.3-1.2); BLOOD UREA NITROGEN 34 MG/DL (9-23); CALCIUM LEVEL 9.3 MG/DL (8.3-10.6); CARBON DIOXIDE LEVEL 20 MMOL/L (20-31); CHLORIDE LEVEL 100 MMOL/L (98-107); CREATININE FOR GFR 2.46 MG/DL (0.70-1.30); GLOMERULAR FILTRATION RATE 27.4 (>42); GLUCOSE, FASTING 251 MG/DL (74-106); POTASSIUM SERUM 3.5 MMOL/L (3.5-5.1); SODIUM LEVEL 134 MMOL/L (136-145); TOTAL PROTEIN 5.7 G/DL (5.7-8.2)
[2024-01-14 21:11] LABS: THYROID STIMULATING HORMONE 6.484 uIU/ML (0.55-4.78)
[2024-01-14] MEDS: PIPERACILLIN/TAZOBACTAM SOD 4.5 GM in D5W MINI-BAG PLUS 50 ML IV ONE (21:11)
[2024-01-14 21:16] LABS: PROCALCITONIN 34.81 ng/ml
[2024-01-14 21:30] LABS: LYMPHOCYTES 1 % (16-44); METAMYELOCYTES 4 % (0-0); MONOCYTES 3 % (0-5); NEUTROPHILS 85 % (28-66)
[2024-01-14 21:31] LABS: FREE T4 1.66 NG/DL (0.89-1.76); PLATELET CLUMPS SMALL AMT; PLATELET ESTIMATE NORMAL (NORMAL)
[2024-01-14] MEDS: NOREPINEPHRINE 4MG IN D5 250ML 4 MG in IV 1 EA IV SCH (22:03)
[2024-01-14] MEDS ORDERED: JARD1TAB3 PO (22:14)
[2024-01-14] MEDS ORDERED: LEVO75TA4 PO (22:17)
[2024-01-14] MEDS ORDERED: HOME MED LIST COMPLETE! XX SCH (22:20)
[2024-01-14] MEDS: ACETAMINOPHEN *IV* 1,000 MG in IV 1 EA IV ONE (23:29)
[2024-01-15] VITALS (88 sets, daily range): BP systolic 74–113; BP diastolic 47–69; TEMP 99.3–101.5; O2SAT 90–97
[2024-01-15] MEDS ORDERED: GLUCOSE 4 GM CHEW PO PRN
[2024-01-15] MEDS ORDERED: GLUCAGON INJ 1MG VIAL SC PRN
[2024-01-15] MEDS ORDERED: DEXTROSE 50% 50ML SYRINGE IV PRN
[2024-01-15] MEDS: INSULIN LISPRO (NovoLOG) PER UNIT SC SCH (00:50)
[2024-01-15] MEDS: NOREPINEPHRINE 4MG IN D5 250ML 4 MG in IV 1 EA IV SCH (00:51)
[2024-01-15] MEDS: LR 1,000 ML IV ONE ×3 (00:56→06:46)
[2024-01-15 01:20] LABS: CALCIUM LEVEL 7.8 MG/DL (8.3-10.6); CREATININE FOR GFR 2.49 MG/DL (0.70-1.30); POTASSIUM SERUM 3.5 MMOL/L (3.5-5.1)
[2024-01-15] MEDS: NS 1,000 ML IV SCH (02:12)
[2024-01-15] MEDS: POTASSIUM CHLORIDE 10MEQ SR TABLET PO ONE (02:12)
[2024-01-15] MEDS: MAG SULF 1GM/100ML (MAG RUN) 1 GM in IV 1 EA IV ONE ×2 (02:12→06:46)
[2024-01-15] MEDS: ONDANSETRON 4MG 2ML VIAL IV PRN (02:29)
[2024-01-15] MEDS: ACETAMINOPHEN *IV* 1,000 MG in IV 1 EA IV ONE (02:40)
[2024-01-15] MEDS ORDERED: HYDROMORPHONE HCL 0.5 MG/ 0.5 ML SYRINGE IV PRN (02:45)
[2024-01-15] MEDS: METOCLOPRAMIDE INJ 10MG/2ML VIAL IV ONE (02:50)
[2024-01-15] MEDS: PANTOPRAZOLE 40MG VIAL IV ONE (02:50)
[2024-01-15] MEDS: HYDROMORPHONE HCL 0.5 MG/ 0.5 ML SYRINGE IV PRN (03:06)
[2024-01-15] MEDS: PIPERACILLIN/TAZOBACTAM SOD 4.5 GM in D5W MINI-BAG PLUS 50 ML IV SCH (04:30)
[2024-01-15] MEDS: KCL 20MEQ in NS 1000ML 1,000 ML IV SCH (04:30)
[2024-01-15 05:10] LABS: HEMATOCRIT 41.9 % (42.0-52.0); HEMOGLOBIN 14.3 g/dl (13.5-17.5); MEAN CORPUSCULAR HGB CONC 34.1 g/dl (32.0-36.5); MEAN CORPUSCULAR VOLUME 90.9 fl (80.0-96.0); PLATELET COUNT, AUTOMATED 144 10^3/uL (150-450); RED BLOOD COUNT 4.61 10^6/uL (4.30-6.10); WHITE BLOOD COUNT 22.8 10^3/uL (4.0-10.0)
[2024-01-15 05:45] LABS: ALBUMIN 2.7 G/DL (3.2-5.2); CALCIUM LEVEL 7.8 MG/DL (8.3-10.6); CREATININE FOR GFR 2.47 MG/DL (0.70-1.30); GLOMERULAR FILTRATION RATE 27.2 (>42); MAGNESIUM LEVEL 1.3 MG/DL (1.8-2.4); POTASSIUM SERUM 3.9 MMOL/L (3.5-5.1); TOTAL PROTEIN 4.7 G/DL (5.7-8.2)
[2024-01-15] MEDS: HEPARIN SOD (PORCINE) 5000UNITS/ML 1ML VIAL/SYRINGE SC SCH (05:56)
[2024-01-15] MEDS: LEVOTHYROXINE 37.5MCG PER 1/2TAB (0.0375MG) PO SCH (06:00)
[2024-01-15] MEDS ORDERED: LR 1,000 ML IV SCH (07:55)
[2024-01-15] MEDS: ACETAMINOPHEN TAB 650MG DOSE (2X325MG) PO PRN (09:58)
[2024-01-15] MEDS: LR 1,000 ML IV SCH (14:39)
[2024-01-16] VITALS (25 sets, daily range): BP systolic 86–135; BP diastolic 53–76; TEMP 99–100.8; O2SAT 93–96
[2024-01-16 06:17] LABS: HEMATOCRIT 42.1 % (42.0-52.0); MEAN CORPUSCULAR HEMOGLOBIN 30.6 pg (27.0-33.0); MEAN CORPUSCULAR HGB CONC 33.3 g/dl (32.0-36.5); MEAN CORPUSCULAR VOLUME 92.1 fl (80.0-96.0); RED BLOOD COUNT 4.57 10^6/uL (4.30-6.10); WHITE BLOOD COUNT 17.5 10^3/uL (4.0-10.0)
[2024-01-16 06:23] LABS: PLATELET COUNT, AUTOMATED 85 10^3/uL (150-450)
[2024-01-16 06:46] LABS: ALBUMIN 2.2 G/DL (3.2-5.2); BILIRUBIN,TOTAL 0.8 MG/DL (0.3-1.2); CALCIUM LEVEL 7.5 MG/DL (8.3-10.6); CREATININE FOR GFR 3.59 MG/DL (0.70-1.30); GLOMERULAR FILTRATION RATE 17.7 (>42); POTASSIUM SERUM 5.3 MMOL/L (3.5-5.1); TOTAL PROTEIN 4.4 G/DL (5.7-8.2)
[2024-01-16 06:53] LABS: ANISOCYTOSIS 1+; LYMPHOCYTES 4 % (16-44); MONOCYTES 10 % (0-5); NEUTROPHILS 74 % (28-66); PLATELET ESTIMATE DECREASED (NORMAL); POIKILOCYTOSIS 1+
[2024-01-16 06:54] LABS: POLYCHROMASIA 1+
[2024-01-16] MEDS: LevoFLOXacin IV 750 MG in IV 1 EA IV ONE (09:23)
[2024-01-16] MEDS: PANTOPRAZOLE 40MG VIAL IV SCH (09:28)
[2024-01-16] MEDS: LR 1,000 ML IV SCH (10:55)
[2024-01-16] MEDS: INSULIN LISPRO (NovoLOG) PER UNIT SC SCH ×2 (12:00→21:00)
[2024-01-16] MEDS: NS 1,000 ML IV SCH (13:38)
[2024-01-16] MEDS: PATIROMER SORBITEX CALCIUM 8.4 GM POWDER PACKET (VELTASSA) PO ONE (14:30)
[2024-01-16] MEDS: MAG SULF 1GM/100ML (MAG RUN) 1 GM in IV 1 EA IV ONE (14:38)
[2024-01-16] MEDS: LACTOBACILLUS ACIDOPHILUS CAP (BACID) PO SCH (16:57)
[2024-01-16 18:01] LABS: HEMOGLOBIN A1c 7.1 % (4.0-6.0)
[2024-01-16 18:10] LABS: CALCIUM LEVEL 7.1 MG/DL (8.3-10.6); CREATININE FOR GFR 3.68 MG/DL (0.70-1.30); GLOMERULAR FILTRATION RATE 17.2 (>42); POTASSIUM SERUM 4.9 MMOL/L (3.5-5.1)
[2024-01-16 18:13] LABS: ALBUMIN 2.2 G/DL (3.2-5.2); BILIRUBIN,DIRECT 0.3 MG/DL (<0.4); BILIRUBIN,TOTAL 0.8 MG/DL (0.3-1.2); TOTAL PROTEIN 4.7 G/DL (5.7-8.2)
[2024-01-16] MEDS: FIDAXOMICIN 200 MG TAB (DIFICID) PO SCH (21:13)
[2024-01-16] MEDS: PIPERACILLIN/TAZOBACTAM SOD 4.5 GM in D5W MINI-BAG PLUS 50 ML IV SCH (21:13)
[2024-01-17 03:01] VITALS: BP 121/74; TEMP 97.7; O2SAT 95
[2024-01-17 06:30] LABS: BASO # 0.1 10^3/uL (0.0-0.2); BASO % 0.3 % (0.0-1.0); EOS # 0.1 10^3/uL (0.0-0.5); EOS % 0.7 % (0.0-3.0); HEMATOCRIT 40.3 % (42.0-52.0); HEMOGLOBIN 13.9 g/dl (13.5-17.5); LYMPH # 0.3 10^3/uL (1.5-5.0); LYMPH % 1.6 % (24.0-44.0); MEAN CORPUSCULAR HEMOGLOBIN 30.7 pg (27.0-33.0); MEAN CORPUSCULAR HGB CONC 34.5 g/dl (32.0-36.5); MONO # 0.4 10^3/uL (0.0-0.8); MONO % 2.4 % (2.0-8.0); NEUTROPHILS # 15.7 10^3/uL (1.5-8.5); NEUTROPHILS % 94.4 % (36.0-66.0); PLATELET COUNT, AUTOMATED 76 10^3/uL (150-450); RED BLOOD COUNT 4.53 10^6/uL (4.30-6.10); WHITE BLOOD COUNT 16.6 10^3/uL (4.0-10.0)
[2024-01-17 07:01] LABS: ALBUMIN 1.8 G/DL (3.2-5.2); BILIRUBIN,TOTAL 0.7 MG/DL (0.3-1.2); CREATININE FOR GFR 3.79 MG/DL (0.70-1.30); GLOMERULAR FILTRATION RATE 16.6 (>42); POTASSIUM SERUM 4.4 MMOL/L (3.5-5.1)
[2024-01-17 07:31] VITALS: BP 121/74; TEMP 98.4; O2SAT 95
[2024-01-17 11:48] VITALS: BP 115/74; TEMP 99.9; O2SAT 95
[2024-01-17] MEDS: SODIUM BICARBONATE 75 MEQ in NS 0.45% 1,000 ML IV SCH (12:09)
[2024-01-17 15:38] VITALS: BP 120/70; TEMP 100.9; O2SAT 95
[2024-01-17 19:47] VITALS: BP 128/78; TEMP 100.2; O2SAT 95
[2024-01-17 23:55] VITALS: BP 114/64; TEMP 99.7; O2SAT 95
[2024-01-18] VITALS (11 sets, daily range): BP systolic 117–135; BP diastolic 61–72; TEMP 99.5–100.6; O2SAT 89–97
[2024-01-18 05:59] LABS: BASO % 0.1 % (0.0-1.0); EOS % 0.2 % (0.0-3.0); HEMATOCRIT 38.7 % (42.0-52.0); HEMOGLOBIN 13.3 g/dl (13.5-17.5); LYMPH # 0.3 10^3/uL (1.5-5.0); LYMPH % 2.1 % (24.0-44.0); MEAN CORPUSCULAR HEMOGLOBIN 30.4 pg (27.0-33.0); MEAN CORPUSCULAR HGB CONC 34.4 g/dl (32.0-36.5); MEAN CORPUSCULAR VOLUME 88.6 fl (80.0-96.0); MONO # 0.6 10^3/uL (0.0-0.8); MONO % 4.4 % (2.0-8.0); NEUTROPHILS # 13.1 10^3/uL (1.5-8.5); NEUTROPHILS % 92.6 % (36.0-66.0); RED BLOOD COUNT 4.37 10^6/uL (4.30-6.10); WHITE BLOOD COUNT 14.2 10^3/uL (4.0-10.0)
[2024-01-18 06:01] LABS: PLATELET COUNT, AUTOMATED 72 10^3/uL (150-450)
[2024-01-18 06:32] LABS: ALBUMIN 1.6 G/DL (3.2-5.2); BILIRUBIN,TOTAL 0.6 MG/DL (0.3-1.2); CALCIUM LEVEL 7.1 MG/DL (8.3-10.6); CREATININE FOR GFR 4.02 MG/DL (0.70-1.30); GLOMERULAR FILTRATION RATE 15.5 (>42); PHOSPHORUS LEVEL 4.4 MG/DL (2.4-5.1); POTASSIUM SERUM 3.7 MMOL/L (3.5-5.1); TOTAL PROTEIN 3.9 G/DL (5.7-8.2)
[2024-01-18] MEDS: ACETAMINOPHEN TAB 650MG DOSE (2X325MG) PO ONE (18:33)
[2024-01-18] MEDS: IPRATROPIUM 0.5MG/ALBUTEROL 2.5MG INH SOL UD 3ML (DUONEB) NEB ONE (19:32)
[2024-01-18] MEDS: METOCLOPRAMIDE INJ 10MG/2ML VIAL IV PRN (20:41)
[2024-01-18] MEDS: IPRATROPIUM 0.5MG/ALBUTEROL 2.5MG INH SOL UD 3ML (DUONEB) NEB SCH (23:06)
[2024-01-19] VITALS (33 sets, daily range): BP systolic 127–151; BP diastolic 62–77; TEMP 98.6–100.4; O2SAT 91–98
[2024-01-19 05:16] LABS: HEMATOCRIT 38.7 % (42.0-52.0); HEMOGLOBIN 13.4 g/dl (13.5-17.5); MEAN CORPUSCULAR HEMOGLOBIN 30.9 pg (27.0-33.0); MEAN CORPUSCULAR HGB CONC 34.6 g/dl (32.0-36.5); MEAN CORPUSCULAR VOLUME 89.2 fl (80.0-96.0); RED BLOOD COUNT 4.34 10^6/uL (4.30-6.10); WHITE BLOOD COUNT 10.5 10^3/uL (4.0-10.0)
[2024-01-19 05:18] LABS: PLATELET COUNT, AUTOMATED 77 10^3/uL (150-450)
[2024-01-19 05:52] LABS: ALBUMIN 1.5 G/DL (3.2-5.2); CALCIUM LEVEL 6.7 MG/DL (8.3-10.6); CREATININE FOR GFR 4.12 MG/DL (0.70-1.30); GLOMERULAR FILTRATION RATE 15.1 (>42); PHOSPHORUS LEVEL 4.5 MG/DL (2.4-5.1); POTASSIUM SERUM 3.5 MMOL/L (3.5-5.1)
[2024-01-19] MEDS: METOCLOPRAMIDE INJ 10MG/2ML VIAL IV PRN (06:03)
[2024-01-19] MEDS: SODIUM BICARBONATE 325 MG TAB PO SCH (12:00)
[2024-01-20] VITALS (12 sets, daily range): BP systolic 104–163; BP diastolic 66–73; TEMP 97.8–99.3; O2SAT 94–96
[2024-01-20 06:03] LABS: HEMATOCRIT 36.7 % (42.0-52.0); MEAN CORPUSCULAR HEMOGLOBIN 31.3 pg (27.0-33.0); MEAN CORPUSCULAR HGB CONC 35.4 g/dl (32.0-36.5); MEAN CORPUSCULAR VOLUME 88.2 fl (80.0-96.0); RED BLOOD COUNT 4.16 10^6/uL (4.30-6.10); WHITE BLOOD COUNT 9.3 10^3/uL (4.0-10.0)
[2024-01-20 06:05] LABS: PLATELET COUNT, AUTOMATED 96 10^3/uL (150-450)
[2024-01-20 06:23] LABS: CALCIUM LEVEL 7.2 MG/DL (8.3-10.6); CREATININE FOR GFR 3.84 MG/DL (0.70-1.30); GLOMERULAR FILTRATION RATE 16.4 (>42); POTASSIUM SERUM 3.3 MMOL/L (3.5-5.1)
[2024-01-20] MEDS: POTASSIUM CHLORIDE 10MEQ SR TABLET PO ONE (08:23)
[2024-01-20] MEDS: POTASSIUM CHLORIDE 10MEQ SR TABLET PO SCH (11:29)
[2024-01-20] MEDS: FUROSEMIDE 100MG/10ML VIAL IV ONE (12:03)
[2024-01-21 03:52] VITALS: BP 149/67; TEMP 97.9; O2SAT 92
[2024-01-21 07:54] LABS: HEMATOCRIT 42.3 % (42.0-52.0); HEMOGLOBIN 14.4 g/dl (13.5-17.5); MEAN CORPUSCULAR HEMOGLOBIN 30.3 pg (27.0-33.0); MEAN CORPUSCULAR VOLUME 88.9 fl (80.0-96.0); PLATELET COUNT, AUTOMATED 140 10^3/uL (150-450); RED BLOOD COUNT 4.76 10^6/uL (4.30-6.10)
[2024-01-21 08:26] LABS: CALCIUM LEVEL 7.7 MG/DL (8.3-10.6); CREATININE FOR GFR 3.49 MG/DL (0.70-1.30); GLOMERULAR FILTRATION RATE 18.3 (>42); POTASSIUM SERUM 3.9 MMOL/L (3.5-5.1)
[2024-01-21 08:34] LABS: ERYTHROCYTE SEDIMENTATION RATE 44 mm/hr (0-20)
[2024-01-21 08:35] LABS: C REACTIVE PROTEIN QUANTITATIV 11.5 MG/DL (<1.0)
[2024-01-21 08:49] LABS: PROCALCITONIN 19.15 ng/ml
[2024-01-21 08:57] VITALS: BP 137/63; TEMP 98.1; O2SAT 94
[2024-01-21] MEDS: POTASSIUM CHLORIDE 10MEQ SR TABLET PO SCH (10:00)
[2024-01-21] MEDS: FUROSEMIDE 100MG/10ML VIAL IV ONE (10:00)
[2024-01-21 16:00] VITALS: BP 104/54; TEMP 97.8; O2SAT 92
[2024-01-21 20:00] VITALS: BP 158/73; TEMP 97.1; O2SAT 94
[2024-01-22 04:00] VITALS: BP 148/64; TEMP 98.8; O2SAT 97
[2024-01-22 06:18] LABS: HEMATOCRIT 39.5 % (42.0-52.0); HEMOGLOBIN 13.9 g/dl (13.5-17.5); MEAN CORPUSCULAR HGB CONC 35.2 g/dl (32.0-36.5); PLATELET COUNT, AUTOMATED 149 10^3/uL (150-450); RED BLOOD COUNT 4.49 10^6/uL (4.30-6.10); WHITE BLOOD COUNT 14.1 10^3/uL (4.0-10.0)
[2024-01-22 06:46] LABS: CALCIUM LEVEL 7.6 MG/DL (8.3-10.6); CREATININE FOR GFR 3.04 MG/DL (0.70-1.30); GLOMERULAR FILTRATION RATE 21.4 (>42); POTASSIUM SERUM 3.9 MMOL/L (3.5-5.1)
[2024-01-22 07:25] VITALS: BP 144/69; TEMP 97.1; O2SAT 95
[2024-01-22 08:00] VITALS: BP 154/63; TEMP 97.4; O2SAT 94
[2024-01-22] MEDS ORDERED: IPRATROPIUM 0.5MG/ALBUTEROL 2.5MG INH SOL UD 3ML (DUONEB) NEB PRN (09:40)
[2024-01-22 11:35] VITALS: BP 163/79; TEMP 96.6; O2SAT 96
[2024-01-22] MEDS: FUROSEMIDE 40MG/4ML VIAL IV ONE (12:20)
[2024-01-22 14:07] LABS: HEP INDUCED PLT AB PATIENT OD 0.031 OD UNITS (<=0.300); HEPARIN INDUCED PLATELET ABY Negative (Negative)
[2024-01-22] MEDS: PIPERACILLIN/TAZOBACTAM SOD 3.375 GM in D5W MINI-BAG PLUS 50 ML IV SCH (16:19)
[2024-01-22 20:00] VITALS: BP 154/63; TEMP 97.4; O2SAT 95
[2024-01-22 22:14] VITALS: BP 152/78; TEMP 98.1; O2SAT 94
[2024-01-23 04:09] VITALS: BP 144/75; TEMP 98.1; O2SAT 94
[2024-01-23 06:21] LABS: HEMATOCRIT 40.7 % (42.0-52.0); MEAN CORPUSCULAR HEMOGLOBIN 30.5 pg (27.0-33.0); MEAN CORPUSCULAR HGB CONC 34.4 g/dl (32.0-36.5); MEAN CORPUSCULAR VOLUME 88.7 fl (80.0-96.0); PLATELET COUNT, AUTOMATED 180 10^3/uL (150-450); RED BLOOD COUNT 4.59 10^6/uL (4.30-6.10); WHITE BLOOD COUNT 16.6 10^3/uL (4.0-10.0)
[2024-01-23 06:44] LABS: CALCIUM LEVEL 7.8 MG/DL (8.3-10.6); CREATININE FOR GFR 2.63 MG/DL (0.70-1.30); GLOMERULAR FILTRATION RATE 25.3 (>42); POTASSIUM SERUM 3.8 MMOL/L (3.5-5.1)
[2024-01-23 12:00] VITALS: BP 150/72; TEMP 97.5; O2SAT 97
[2024-01-23] MEDS: FUROSEMIDE 40MG/4ML VIAL IV ONE (13:57)
[2024-01-23 19:28] VITALS: BP 158/77; TEMP 97.9; O2SAT 97
[2024-01-24 04:18] VITALS: BP 125/66; TEMP 97.9; O2SAT 93
[2024-01-24 07:18] LABS: HEMATOCRIT 42.5 % (42.0-52.0); HEMOGLOBIN 14.5 g/dl (13.5-17.5); MEAN CORPUSCULAR HEMOGLOBIN 30.3 pg (27.0-33.0); MEAN CORPUSCULAR HGB CONC 34.1 g/dl (32.0-36.5); MEAN CORPUSCULAR VOLUME 88.9 fl (80.0-96.0); PLATELET COUNT, AUTOMATED 197 10^3/uL (150-450); RED BLOOD COUNT 4.78 10^6/uL (4.30-6.10); WHITE BLOOD COUNT 16.6 10^3/uL (4.0-10.0)
[2024-01-24 07:46] LABS: CALCIUM LEVEL 7.9 MG/DL (8.3-10.6); CREATININE FOR GFR 2.48 MG/DL (0.70-1.30); GLOMERULAR FILTRATION RATE 27.1 (>42); POTASSIUM SERUM 3.6 MMOL/L (3.5-5.1)
[2024-01-24 11:46] LABS: PROCALCITONIN 2.87 ng/ml
[2024-01-24] MEDS: POTASSIUM CHLORIDE 10MEQ SR TABLET PO ONE (11:54)
[2024-01-24 12:00] VITALS: BP 120/68; TEMP 97.3; O2SAT 95
[2024-01-24 20:14] VITALS: BP 121/69; TEMP 97.9; O2SAT 96
[2024-01-25 03:33] VITALS: BP 136/56; TEMP 97.7; O2SAT 96
[2024-01-25 06:21] LABS: HEMOGLOBIN 13.7 g/dl (13.5-17.5); MEAN CORPUSCULAR HEMOGLOBIN 29.9 pg (27.0-33.0); MEAN CORPUSCULAR HGB CONC 33.4 g/dl (32.0-36.5); MEAN CORPUSCULAR VOLUME 89.5 fl (80.0-96.0); PLATELET COUNT, AUTOMATED 201 10^3/uL (150-450); RED BLOOD COUNT 4.58 10^6/uL (4.30-6.10); WHITE BLOOD COUNT 15.5 10^3/uL (4.0-10.0)
[2024-01-25 06:44] LABS: CALCIUM LEVEL 7.9 MG/DL (8.3-10.6); CREATININE FOR GFR 2.25 MG/DL (0.70-1.30); GLOMERULAR FILTRATION RATE 30.3 (>42)
[2024-01-25 12:00] VITALS: BP 120/54; TEMP 97.3
[2024-01-25] MEDS: TAMSULOSIN 0.4 MG CAP PO SCH (12:15)
[2024-01-25 20:30] VITALS: BP 124/66; TEMP 97.7; O2SAT 96
[2024-01-26 04:11] VITALS: BP 134/63; TEMP 97.7; O2SAT 97
[2024-01-26 12:00] VITALS: BP 133/65; TEMP 97.5; O2SAT 92
[2024-01-26 20:50] VITALS: BP 149/76; TEMP 97.7; O2SAT 96
[2024-01-27 04:30] VITALS: BP 131/66; TEMP 98.1; O2SAT 95
[2024-01-27 12:00] VITALS: BP 139/67; TEMP 97; O2SAT 98
[2024-01-27] MEDS ORDERED: RISATAB3 PO (12:28)
[2024-01-27] MEDS ORDERED: PANT-23 PO (12:28)
[2024-01-27] MEDS ORDERED: METF750T36 PO (12:28)
[2024-01-27] MEDS ORDERED: NORV5TAB PO (12:28)
== END 2024-01-27 16:07 | disposition home or self-care (01) | DRG 871 ==
LOC: M ED 19:54 → M ED INP 23:53 → M ICU 01-15 01:47 → M PCU 01-16 13:08 → M MSPAV 01-22 22:05
PROVIDERS: ADMIT Preventive Medicine Undersea and Hyperbaric Medicine; ATTEND Preventive Medicine Undersea and Hyperbaric Medicine
DX: A41.52 Sepsis due to Pseudomonas (principal); R65.21 Severe sepsis with septic shock; N17.0 Acute kidney failure with tubular necrosis; N12 Tubulo-interstitial nephritis, not specified as acute or chronic; E87.20 Acidosis, unspecified; E87.1 Hypo-osmolality and hyponatremia; A04.72 Enterocolitis due to Clostridium difficile, not specified as recurrent; I10 Essential (primary) hypertension; E03.9 Hypothyroidism, unspecified; D64.9 Anemia, unspecified; E11.9 Type 2 diabetes mellitus without complications; N40.0 Benign prostatic hyperplasia without lower urinary tract symptoms; N20.0 Calculus of kidney; E87.5 Hyperkalemia; Z79.899 Other long term (current) drug therapy; Z79.82 Long term (current) use of aspirin; E83.42 Hypomagnesemia; E78.5 Hyperlipidemia, unspecified; R94.31 Abnormal electrocardiogram [ECG] [EKG]; M99.73 Connective tissue and disc stenosis of intervertebral foramina of lumbar region

== ENCOUNTER 2024-01-31 17:48 | Inpatient (IN) | payer MEDICARE, OTHER ==
[~2024-01-31] VITALS: Ht 172.7 cm; Wt 75.1 kg
[~2024-01-31 17:48] MED LIST changes: +JARD1TAB3 PO; +LEVO75TA4 PO; +NORV5TAB PO; +PANT-23 PO; +RISATAB3 PO
[2024-01-31 18:41] LABS: ABG BASE EXCESS -1.9 (-2.0-2.0); ABG HCO3 19.2 MMOL/L (22.0-26.0); ABG O2 SATURATION 95.8 % (95.0-99.0); ABG PARTIAL PRESSURE CO2 24.4 mmHg (35.0-45.0); ABG PARTIAL PRESSURE O2 71.3 mmHg (75.0-100.0); ABG STANDARD HCO3 22.9 MMOL/L. (22.0-26.0); ABG TOTAL CO2 19.9 MMOL/L (23.0-31.0); ABG pH (ARTERIAL) 7.513 UNITS (7.350-7.450)
[2024-01-31 18:53] LABS: BASO # 0.1 10^3/uL (0.0-0.2); BASO % 0.2 % (0.0-1.0); HEMATOCRIT 43.6 % (42.0-52.0); HEMOGLOBIN 14.7 g/dl (13.5-17.5); LYMPH # 0.5 10^3/uL (1.5-5.0); LYMPH % 2.2 % (24.0-44.0); MEAN CORPUSCULAR HEMOGLOBIN 30.7 pg (27.0-33.0); MEAN CORPUSCULAR HGB CONC 33.7 g/dl (32.0-36.5); MONO # 1.4 10^3/uL (0.0-0.8); MONO % 5.5 % (2.0-8.0); NEUTROPHILS # 22.3 10^3/uL (1.5-8.5); NEUTROPHILS % 91.1 % (36.0-66.0); PLATELET COUNT, AUTOMATED 211 10^3/uL (150-450); RED BLOOD COUNT 4.79 10^6/uL (4.30-6.10); WHITE BLOOD COUNT 24.5 10^3/uL (4.0-10.0)
[2024-01-31 19:00] LABS: APPEARANCE, URINE HAZY (CLEAR); BACTERIA, URINE AUTO 1+ (NEGATIVE); BILIRUBIN, URINE AUTO NEGATIVE (NEGATIVE); BLOOD, URINE BLOOD 2+ (NEGATIVE); COLOR, URINE STRAW (YELLOW); GLUCOSE, URINE (UA) AUTO 3+ mg/dL (NEGATIVE); KETONE, URINE AUTO NEGATIVE (NEGATIVE); LEUKOCYTE ESTERASE, URINE AUTO 2+ (NEGATIVE); NITRITE, URINE AUTO POSITIVE (NEGATIVE); PROTEIN, URINE AUTO 2+ mg/dL (NEGATIVE); RBC, URINE AUTO 12 /HPF (0-3); SPECIFIC GRAVITY URINE AUTO 1.014 (1.002-1.035); SQUAMOUS EPITHELIAL CELL UR AU 0 /HPF (0-6); UROBILINOGEN, URINE AUTO 0.2 mg/dL (0.0-2.0); WBC, URINE AUTO 57 /HPF (0-3)
[2024-01-31 19:06] LABS: INR 1.25; PARTIAL THROMBOPLASTIN TIME 33.5 SECONDS (24.8-34.2); PROTHROMBIN TIME 15.3 SECONDS (12.5-14.5)
[2024-01-31 19:18] LABS: AMYLASE 149 U/L (30-118); CPK CREATINE PHOSPHOKINASE 39 U/L (46-171)
[2024-01-31 19:31] LABS: PROCALCITONIN 1.31 ng/ml
[2024-01-31 19:40] LABS: ALBUMIN 3.3 G/DL (3.2-5.2); ALKALINE PHOSPHATASE 105 U/L (46-116); ALT/SGPT 35 U/L (7.0-40); AST/SGOT 18 U/L (<34); BILIRUBIN,DIRECT 0.4 MG/DL (<0.4); BILIRUBIN,TOTAL 1.1 MG/DL (0.3-1.2); BLOOD UREA NITROGEN 34 MG/DL (9-23); CARBON DIOXIDE LEVEL 24 MMOL/L (20-31); CHLORIDE LEVEL 100 MMOL/L (98-107); CK-MB VALUE MASS < 1.0 NG/ML (<3.6); CREATININE FOR GFR 2.27 MG/DL (0.70-1.30); GLUCOSE, FASTING 201 MG/DL (74-106); MB/CK RELATIVE INDEX 2.56 (< OR =4); POTASSIUM SERUM 4.1 MMOL/L (3.5-5.1); SODIUM LEVEL 134 MMOL/L (136-145); TOTAL PROTEIN 6.8 G/DL (5.7-8.2)
[2024-01-31] MEDS: ACETAMINOPHEN *IV* 1,000 MG in IV 1 EA IV ONE (20:28)
[2024-01-31] MEDS: cefTRIAXone SOD 1 GM in D5W MINI-BAG PLUS 50 ML IV ONE (20:28)
[2024-01-31] MEDS: NS 1,000 ML IV ONE (20:28)
[2024-01-31] MEDS ORDERED: ATOR40TA75 PO (23:19)
[2024-01-31] MEDS ORDERED: AMLO1TAB24 PO (23:19)
[2024-01-31] MEDS ORDERED: ASPI-615 PO (23:19)
[2024-01-31] MEDS ORDERED: PANT40TA29 PO (23:19)
[2024-01-31] MEDS ORDERED: RISATAB3 PO (23:19)
[2024-01-31] MEDS ORDERED: HOME MED LIST COMPLETE! XX SCH (23:20)
[2024-01-31] MEDS ORDERED: DEXTROSE 50% 50ML SYRINGE IV PRN (23:35)
[2024-01-31] MEDS ORDERED: MOM 30ML SUSPENSION UDC PO PRN (23:35)
[2024-01-31] MEDS ORDERED: GLUCAGON INJ 1MG VIAL SC PRN (23:35)
[2024-01-31] MEDS ORDERED: GLUCOSE 4 GM CHEW PO PRN (23:35)
[2024-02-01] VITALS (10 sets, daily range): BP systolic 109–127; BP diastolic 57–66; TEMP 98.1–100.1; O2SAT 93–98
[2024-02-01] MEDS: ASPIRIN 81MG ENTERIC TABLET PO SCH (00:12)
[2024-02-01] MEDS: ATORVASTATIN 20 MG TAB PO SCH (00:12)
[2024-02-01] MEDS: amLODIPine 5 MG TAB PO SCH (00:13)
[2024-02-01] MEDS: ACETAMINOPHEN TAB 650MG DOSE (2X325MG) PO PRN (00:41)
[2024-02-01 04:36] LABS: HEMATOCRIT 38.6 % (42.0-52.0); HEMOGLOBIN 12.9 g/dl (13.5-17.5); MEAN CORPUSCULAR HEMOGLOBIN 30.2 pg (27.0-33.0); MEAN CORPUSCULAR HGB CONC 33.4 g/dl (32.0-36.5); MEAN CORPUSCULAR VOLUME 90.4 fl (80.0-96.0); PLATELET COUNT, AUTOMATED 179 10^3/uL (150-450); RED BLOOD COUNT 4.27 10^6/uL (4.30-6.10); WHITE BLOOD COUNT 28.7 10^3/uL (4.0-10.0)
[2024-02-01 05:09] LABS: ALBUMIN 2.6 G/DL (3.2-5.2); BILIRUBIN,TOTAL 0.9 MG/DL (0.3-1.2); CALCIUM LEVEL 8.3 MG/DL (8.3-10.6); CREATININE FOR GFR 2.01 MG/DL (0.70-1.30); GLOMERULAR FILTRATION RATE 34.6 (>42); POTASSIUM SERUM 3.6 MMOL/L (3.5-5.1); TOTAL PROTEIN 5.7 G/DL (5.7-8.2)
[2024-02-01] MEDS: HEPARIN SOD (PORCINE) 5000UNITS/ML 1ML VIAL/SYRINGE SC SCH (05:54)
[2024-02-01] MEDS: LEVOTHYROXINE 37.5MCG PER 1/2TAB (0.0375MG) PO SCH (05:54)
[2024-02-01] MEDS: CEFEPIME HCL 2 GM in D5W MINI-BAG PLUS 50 ML IV SCH (08:09)
[2024-02-01] MEDS: DOCUSATE SODIUM 100MG CAPSULE PO SCH (08:10)
[2024-02-01] MEDS: PANTOPRAZOLE 40MG TAB (PROTONIX) PO SCH (08:10)
[2024-02-01] MEDS: INSULIN LISPRO (NovoLOG) PER UNIT SC SCH ×2 (08:10→19:11)
[2024-02-01] MEDS: TAMSULOSIN 0.4 MG CAP PO SCH (08:11)
[2024-02-01] MEDS: VANCOMYCIN 125MG CAPSULE PO SCH (17:14)
[2024-02-01] MEDS: LIDOCAINE 2% 5ML JELLY UROJET TOP ONE (17:35)
[2024-02-01] MEDS ORDERED: cefTRIAXone SOD 1 GM in D5W MINI-BAG PLUS 50 ML IV SCH (20:00)
[2024-02-02] VITALS (20 sets, daily range): BP systolic 110–129; BP diastolic 57–72; TEMP 97.4–98; O2SAT 97–99
[2024-02-02 04:42] LABS: BASO # 0.1 10^3/uL (0.0-0.2); BASO % 0.3 % (0.0-1.0); EOS % 0.2 % (0.0-3.0); HEMATOCRIT 38.7 % (42.0-52.0); HEMOGLOBIN 12.8 g/dl (13.5-17.5); LYMPH # 0.9 10^3/uL (1.5-5.0); LYMPH % 4.9 % (24.0-44.0); MEAN CORPUSCULAR HEMOGLOBIN 30.2 pg (27.0-33.0); MEAN CORPUSCULAR HGB CONC 33.1 g/dl (32.0-36.5); MEAN CORPUSCULAR VOLUME 91.3 fl (80.0-96.0); MONO % 5.3 % (2.0-8.0); NEUTROPHILS # 16.5 10^3/uL (1.5-8.5); NEUTROPHILS % 88.6 % (36.0-66.0); PLATELET COUNT, AUTOMATED 163 10^3/uL (150-450); RED BLOOD COUNT 4.24 10^6/uL (4.30-6.10); WHITE BLOOD COUNT 18.6 10^3/uL (4.0-10.0)
[2024-02-02 04:57] LABS: CALCIUM LEVEL 8.2 MG/DL (8.3-10.6); CREATININE FOR GFR 2.07 MG/DL (0.70-1.30); GLOMERULAR FILTRATION RATE 33.4 (>42); MAGNESIUM LEVEL 1.9 MG/DL (1.8-2.4); POTASSIUM SERUM 3.8 MMOL/L (3.5-5.1)
[2024-02-02 05:04] LABS: C REACTIVE PROTEIN QUANTITATIV 30.4 MG/DL (<1.0)
[2024-02-02] MEDS ORDERED: LEVO1TAB40 PO (10:02)
[2024-02-02] MEDS ORDERED: VANC125C3 PO (10:02)
== END 2024-02-02 11:10 | disposition home or self-care (01) | DRG 872 ==
LOC: M ED 17:48 → M ED INP 23:33 → M ICU 02-01 02:39
PROVIDERS: ADMIT Family Medicine; ATTEND Internal Medicine
PROC: 0TP98DZ Removal of Intraluminal Device from Ureter, Via Natural or Artificial Opening Endoscopic (ICD-10-PCS; principal; 2024-02-01)
DX: A41.9 Sepsis, unspecified organism (principal); N39.0 Urinary tract infection, site not specified; E11.9 Type 2 diabetes mellitus without complications; I10 Essential (primary) hypertension; E03.9 Hypothyroidism, unspecified; E78.5 Hyperlipidemia, unspecified; N40.0 Benign prostatic hyperplasia without lower urinary tract symptoms; K21.9 Gastro-esophageal reflux disease without esophagitis; Z79.899 Other long term (current) drug therapy; Z79.82 Long term (current) use of aspirin

== ENCOUNTER → 2024-02-22 | Outpatient (REF) | payer MEDICARE, OTHER ==
[~2024-02-22] MED LIST changes: +AMLO1TAB24 PO; +ASPI-615 PO; +ATOR40TA75 PO; +LEVO1TAB40 PO; +PANT40TA29 PO; +VANC125C3 PO
== END ==
LOC: M LAB REF 11:21
PROVIDERS: ATTEND Internal Medicine
DX: N17.9 Acute kidney failure, unspecified (principal)

== ENCOUNTER → 2024-04-24 | Outpatient (CLI) | payer MEDICARE, OTHER | LOC: M RAD 16:36 | PROVIDERS: ATTEND Internal Medicine Nephrology | DX: N17.9 Acute kidney failure, unspecified (principal); N28.1 Cyst of kidney, acquired ==

== ENCOUNTER → 2024-10-02 | Outpatient (CLI) | payer MEDICARE, OTHER ==
[~2024-10-02] MED LIST changes: +VANC125C13 PO; -VANC125C3 PO
== END ==
LOC: M WUC 08:54
PROVIDERS: ATTEND Urology
DX: N20.0 Calculus of kidney (principal)